=== PATIENT | male | born 1990 | race African-American/Black ===

== ENCOUNTER 2023-07-11 02:38 | Emergency (ER) | payer MEDICAID, OTHER ==
[~2023-07-11] VITALS: Ht 177.8 cm; Wt 84.0 kg
[2023-07-11] MEDS: METHYLPREDNISOLONE SOD SUCC 125MG/2ML (ACT-O-VIAL) IV STA (02:58)
[2023-07-11] MEDS: MAGNESIUM 2 G PREMIX 50 ML IV ONE (03:00)
[2023-07-11] MEDS: ALBUTEROL (0.083%) 2.5MG/3ML NEB HHN SCH (03:19)
[2023-07-11] MEDS: IPRATROPIUM BROMIDE (0.02%) 0.5MG/2.5ML NEB HHN STA (03:19)
[2023-07-11 03:24] VITALS: PULSE 97; RESP 22; O2SAT 96
[2023-07-11 03:58] VITALS: PULSE 88; RESP 20; O2SAT 97
[2023-07-11 04:36] VITALS: PULSE 79; RESP 20; O2SAT 96
[2023-07-11] MEDS ORDERED: ALBU6.7H15 INH (04:47)
[2023-07-11] MEDS ORDERED: P20 MT (04:47)
[2023-07-11 05:49] VITALS: BP 127/82; PULSE 91; RESP 13; TEMP 98.4
[2023-07-11] MEDS ORDERED: ALBUTEROL (0.083%) 2.5MG/3ML NEB ONE (06:05)
[2023-07-11] MEDS ORDERED: ALBU2.5V13 NEB (06:10)
== END 2023-07-11 06:42 | disposition home or self-care (01) ==
LOC: ER 02:38
DX: J45.901 Unspecified asthma with (acute) exacerbation (principal)
CPT/HCPCS: 94640; 96365; 96366; 96375; 99285; J3475; J2930; Z7610 ×3